=== PATIENT | female | born 1985 | race Caucasian/White ===

== ENCOUNTER 2016-10-30 12:53 | Emergency (ER) | payer BC ==
[2016-10-30 13:25] VITALS: BP 140/93
[2016-10-30] MEDS ORDERED: Ibuprofen TAB* 400 MG PO ONE (13:30)
[2016-10-30] MEDS ORDERED: Acetaminophen TAB* 325 MG PO ONE (13:31)
--- NOTE | 2016-10-30 13:56 | RAD ---
Indication: Right lower leg pain. 2 views of the right lower leg demonstrates no fracture. No other bone or joint abnormality is noted. IMPRESSION: No fracture of the right lower leg is present.
--- NOTE | 2016-10-30 15:37 | UC ---
Lower Extremity/Ankle HPI - HPI Summary HPI Summary: Pt states she fell hiking 4 days ago, landed on a rock on the front of her right leg. Has extensive bruising and pain continues so wanted it checked. No posterior calf pain, no CP, no SOB. Denies other injury. - History of Current Complaint Chief Complaint: UCLowerExtremity Stated Complaint: RIGHT LEG PAIN Time Seen by Provider: 10/30/16 13:26 Hx Obtained From: Patient Hx Last Menstrual Period: 10/19/16 ?: No Onset/Duration: Gradual Onset, Lasting Days, Still Present Severity Initially: Moderate Severity Currently: Moderate Pain Intensity: 6 Pain Scale Used: 0-10 Numeric Aggravating Factor(s): Standing Alleviating Factor(s): Nothing Able to Bear Weight: Yes - Allergies/Home Medications Allergies/Adverse Reactions: Allergies Allergy/AdvReac Type Severity Reaction Status Date / Time Penicillins Allergy Intermediate Rash Verified 10/30/16 13:19 PMH/Surg Hx/FS Hx/Imm Hx Previously Healthy: Yes Endocrine History Of: Denies: Diabetes Cardiovascular History Of: Denies: Cardiac Disorders, Hypertension - Surgical History Surgical History: Yes Surgery Procedure, Year, and Place: ear tubes. 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 [employer] Alcohol Use: Occasionally Substance Use Type: None Smoking Status (MU): Former Smoker When Did the Patient Quit Smoking/Using Tobacco: 5-6 years ago - Immunization History Most Recent Influenza Vaccination: 2016 Review of Systems Constitutional: Negative Skin: Bruising Eyes: Negative ENT: Negative Respiratory: Negative Cardiovascular: Negative Gastrointestinal: Negative Genitourinary: Negative Motor: Negative Neurovascular: Negative Musculoskeletal: Arthralgia - ant tibia pain Neurological: Negative Psychological: Negative All Other Systems Reviewed And Are Negative: Yes Physical Exam Triage Information Reviewed: Yes Appearance: Well-Appearing, No Pain Distress, Well-Nourished Vital Signs: Initial Vital Signs Temp 98.4 F 10/30/16 13:20 Pulse 82 10/30/16 13:20 Resp 14 10/30/16 13:20 BP 140/93 10/30/16 13:20 Pulse Ox 100 10/30/16 13:20 Vital Signs Reviewed: Yes Eyes: Positive: Conjunctiva Clear ENT: Positive: Normal ENT inspection Neck: Positive: Supple Respiratory: Positive: Lungs clear, Normal breath sounds, No respiratory distress Cardiovascular: Positive: RRR, No Murmur, Pulses Normal, Brisk Capillary Refill Musculoskeletal: Positive: Strength Intact, ROM Intact, Other: - swelling, tenderness right ant tibia from knee to ankle. Purple and green ecchymosis. Post calf is soft, nontender. Neg Areli's, no cord palpable. Neurological: Positive: Alert, Muscle Tone Normal Psychological Exam: Normal Skin: Positive: Other - bruising right ant tibia. Lower Extremity Course/Dx - Course Course Of Treatment: right lower leg xray-neg - Differential Dx/Diagnosis Differential Diagnosis/HQI/PQRI: Compartment Syndrome, Contusion, Fracture ( Closed), Sprain, Strain Provider Diagnoses: contusion right ant tibia. elevated BP without dx of HTN Discharge - Discharge Plan Condition: Stable Disposition: HOME Patient Education Materials: Crutch Instructions (ED), Contusion in Adults (ED) Referrals: Torrey Nichole DO [Primary Care Provider] - 3 Days Additional Instructions: Your blood pressure was elevated today at 140/93. You will need to follow up definitely within one month with your doctor regarding this.
== END 2016-10-30 15:55 | disposition home or self-care (01) ==
LOC: UCCORT 12:53
DX: S80.11XA Contusion of right lower leg, initial encounter (principal); W19.XXXA Unspecified fall, initial encounter; Y93.01 Activity, walking, marching and hiking; Y92.9 Unspecified place or not applicable; R03.0 Elevated blood-pressure reading, without diagnosis of hypertension; Z88.0 Allergy status to penicillin; Z87.891 Personal history of nicotine dependence
CPT/HCPCS: 99213; A9270-GY; G0463

== ENCOUNTER 2017-07-22 13:32 | Emergency (ER) | payer BC ==
[2017-07-22 14:55] VITALS: BP 138/69
--- NOTE | 2017-07-22 15:47 | UC ---
Throat Pain/Nasal Sandeep HPI - HPI Summary HPI Summary: pt c/o fever X 1 week then sudden onset of nasal congestion and sinus tenderness X 2 days. - History of Current Complaint Chief Complaint: UCRespiratory Stated Complaint: SINUSES Time Seen by Provider: 07/22/17 15:11 Hx Obtained From: Patient Hx Last Menstrual Period: 07/02/17 ?: No Onset/Duration: Sudden Onset - nasl congesetion and sinus tenderness X 2 days, Gradual Onset - fever, Lasting Days - fever for 1 week, Still Present, Worse Since Severity: Moderate Pain Intensity: 10 Associated Signs & Symptoms: Positive: Sinus Discomfort, Fever - Allergies/Home Medications Allergies/Adverse Reactions: Allergies Allergy/AdvReac Type Severity Reaction Status Date / Time Penicillins Allergy Intermediate Rash Verified 07/22/17 14:48 Home Medications: Home Medications Alprazolam XR (NF) [Xanax XR (NF)] 0.5 mg PO BID 07/22/17 [History Confirmed ] Dextromethorphan-Phenylephrine [Daytime Cold & Flu Relief 10-5-325 mg] 2 cap PO BID PRN 07/22/17 [History Confirmed 07/22/17] PMH/Surg Hx/FS Hx/Imm Hx Previously Healthy: Yes - Surgical History Surgical History: Yes Surgery Procedure, Year, and Place: ear tubes. deviated septum - Family History Known Family History: Positive: Cardiac Disease - father CAD, Hypertension - father, Diabetes - mother - Social History Occupation: Employed Full-time Lives: With Family Alcohol Use: Occasionally Substance Use Type: None Smoking Status (MU): Former Smoker Have You Smoked in the Last Year: No When Did the Patient Quit Smoking/Using Tobacco: 8 years ago - Immunization History Most Recent Influenza Vaccination: 2016 Review of Systems Constitutional: Fever, Chills, Fatigue Skin: Negative Eyes: Negative ENT: Sinus Congestion, Sinus Pain/Tenderness Respiratory: Negative Cardiovascular: Negative Gastrointestinal: Negative Genitourinary: Negative Motor: Negative Neurovascular: Negative Musculoskeletal: Myalgia Neurological: Headache Psychological: Negative Is Patient Immunocompromised?: No All Other Systems Reviewed And Are Negative: Yes Physical Exam Triage Information Reviewed: Yes Appearance: Ill-Appearing Vital Signs: Initial Vital Signs Temp 98 F 07/22/17 14:50 Pulse 87 07/22/17 14:50 Resp 18 07/22/17 14:50 BP 138/69 07/22/17 14:50 Pulse Ox 100 07/22/17 14:50 Vital Signs Reviewed: Yes Eye Exam: Normal ENT Exam: Other ENT: Positive: Nasal congestion, Sinus tenderness Dental Exam: Normal Neck exam: Normal Respiratory Exam: Normal Respiratory: Positive: Normal breath sounds, No respiratory distress Cardiovascular Exam: Normal Musculoskeletal Exam: Normal Neurological Exam: Normal Psychological Exam: Normal Skin Exam: Normal Diagnostics - Laboratory Diagnostic Studies Completed/Ordered: negative rapid flu Throat Pain/Nasal Course/Dx - Differential Dx/Diagnosis Differential Diagnosis/HQI/PQRI: Influenza, Sinusitis, URI Provider Diagnoses: sinusitis Discharge - Discharge Plan Condition: Stable Disposition: HOME Prescriptions: DOXYcycline CAP(*) [DOXYcycline 100MG CAP(*)] 100 mg PO Q12H #20 cap Pseudoephedrine-Guaifenesin [Mucinex D 60-600 mg] 1 tab PO DAILY #10 tab Patient Education Materials: Sinusitis (ED) Forms: *Work Release Referrals: Noa Acuña MD [Primary Care Provider] - If Needed
== END 2017-07-22 15:37 | disposition home or self-care (01) ==
LOC: UCCORT 13:32
DX: J32.9 Chronic sinusitis, unspecified (principal); Z88.0 Allergy status to penicillin; Z87.891 Personal history of nicotine dependence
CPT/HCPCS: 87502; 99212; G0463